=== PATIENT | male | born 2000 | race Two or more races ===

== ENCOUNTER 2023-03-20 15:41 | Emergency (ER) | payer BC, OTHER ==
[~2023-03-20] VITALS: Ht 177.8 cm; Wt 63.5 kg
[2023-03-20 18:18] LABS: HEMOGLOBIN 14.7 g/dL (13-16.00); MEAN CELL VOLUME 85.1 fL (80.0-100.00); MEAN CORPUSCULAR HGB CONC 34.1 g/dl (32.0-36.0); PLATELET COUNT 200 K/uL (150-450); RED BLOOD COUNT 5.06 M/uL (4.00-6.00); RED CELL DISTRIBUTION WIDTH 13.4 % (11.5-14.5)
== END 2023-03-20 20:02 | disposition home or self-care (01) ==
LOC: ER 15:41
PROVIDERS: Nurse Practitioner Family
DX: J06.9 Acute upper respiratory infection, unspecified (principal); U07.1 COVID-19